=== PATIENT | female | born 1985 | race Caucasian/White ===

== ENCOUNTER 2019-01-13 18:40 | Emergency (ER) | payer MEDICAID ==
[2019-01-13] MEDS ORDERED: ASPIRIN 81 MG TABLET, CHEWABLE PO ONE (19:29)
--- NOTE | 2019-01-13 19:31 | ER Document Report ---
ED Medical Screen (RME) - General Chief Complaint: Chest Pain Stated Complaint: CHEST PAIN Time Seen by Provider: 01/13/19 19:25 Primary Care Provider: LAURA WILCOX MD [Primary Care Provider] - Follow up as needed Mode of Arrival: Wheelchair Information source: Patient Notes: Patient presents emergency department with complaints of midsternal chest pain that started today. Reports she has been having diarrhea and in the bed since Saturday. Denies fever vomiting. Denies history of cardiac disease. She reports she has a smoker's cough. Patient took 4 Pepto without relief of symptoms. Has not been on recent antibiotics. EKG shows sinus rhythm I have greeted and performed a rapid initial assessment of this patient. A comprehensive ED assessment and evaluation of the patient, analysis of test results and completion of the medical decision making process will be conducted by additional ED providers. Dictation of this chart was performed using voice recognition software; therefore, there may be some unintended grammatical errors. TRAVEL OUTSIDE OF THE [place] IN LAST 30 DAYS: No - Related Data Allergies/Adverse Reactions: Shellfish * [Shellfish] Allergy (Verified 04/14/15 20:05) pecans Allergy (Uncoded 04/14/15 20:05) walnuts Allergy (Uncoded 04/14/15 20:05) Past Medical History Neurological Medical History: Reports: Hx Migraine, Hx Seizures Psychiatric Medical History: Reports: Hx Attention Deficit Hyperactivity Disorder Past Surgical History: Reports: Hx Cholecystectomy, Hx Oral Surgery - Immunizations Hx Diphtheria, Pertussis, Tetanus Vaccination: Yes Physical Exam - Vital signs Vitals: Temp Pulse Resp BP Pulse Ox 98.0 F 91 16 133/87 H 97 01/13/19 19:17 01/13/19 19:17 01/13/19 19:17 01/13/19 19:17 01/13/19 19:17 Course - Vital Signs Vital signs: Temp Pulse Resp BP Pulse Ox 98.0 F 91 16 133/87 H 97 01/13/19 19:17 01/13/19 19:17 01/13/19 19:17 01/13/19 19:17 01/13/19 19:17 Doctor's Discharge - Discharge Referrals: LAURA WILCOX MD [Primary Care Provider] - Follow up as needed
--- NOTE | 2019-01-13 19:47 | RADIOLOGY REPORT (SQ) ---
EXAM DESCRIPTION: CHEST 2 VIEWS COMPLETED DATE/TIME: 01/13/2019 7:40 pm REASON FOR STUDY: chest pain COMPARISON: 05/20/2014. EXAM PARAMETERS: NUMBER OF VIEWS: two views TECHNIQUE: Digital Frontal and Lateral radiographic views of the chest acquired. RADIATION DOSE: NA LIMITATIONS: none FINDINGS: LUNGS AND PLEURA: No opacities, masses or pneumothorax. No pleural effusion. MEDIASTINUM AND HILAR STRUCTURES: No masses or contour abnormalities. HEART AND VASCULAR STRUCTURES: Heart normal size. No evidence for failure. BONES: No acute findings. HARDWARE: None in the chest. OTHER: No other significant finding. IMPRESSION: NO ACUTE RADIOGRAPHIC FINDING IN THE CHEST. TECHNICAL DOCUMENTATION: JOB ID: [id number] [employer]- All Rights Reserved Reading location - IP/workstation name: [email or web address]
[2019-01-13 20:49] LABS: ABSOLUTE EOSINOPHILS # (AUTO) 0.2 10^3/uL (0.0-0.6); ABSOLUTE LYMPHOCYTES (AUTO) 2.5 10^3/uL (0.5-4.7); ABSOLUTE MONOCYTES (AUTO) 0.6 10^3/uL (0.1-1.4); ABSOLUTE NEUT (AUTO) 6.2 10^3/uL (1.7-8.2); BASOPHILS % (AUTO) 0.3 % (0-2); EOSINOPHILS % (AUTO) 2.2 % (0-6); HEMATOCRIT 48.9 % (36.0-47.0); HEMOGLOBIN 16.9 g/dL (12.0-15.5); LYMPHOCYTES % (AUTO) 26.4 % (13-45); MEAN CORPUSCULAR HEMOGLOBIN 30.5 pg (27.0-33.4); MEAN CORPUSCULAR HGB CONC 34.6 g/dL (32.0-36.0); MEAN CORPUSCULAR VOLUME 88 fl (80-97); MONOCYTES % (AUTO) 6.7 % (3-13); PLATELET COUNT 261 10^3/uL (150-450); RED BLOOD COUNT 5.55 10^6/uL (3.72-5.28); RED CELL DISTRIBUTION WIDTH 13.5 % (11.5-14.0); SEGMENTED NEUTROPHILS % (AUTO) 64.4 % (42-78); TOTAL CELLS COUNTED % (AUTO) 100 %; WHITE BLOOD COUNT 9.5 10^3/uL (4.0-10.5)
[2019-01-13 21:08] LABS: ALBUMIN 4.7 g/dL (3.5-5.0); ALKALINE PHOSPHATASE 106 U/L (38-126); ANION GAP 14 (5-19); ASPARTATE AMINO TRANSFERASE 94 U/L (14-36); BILIRUBIN,DIRECT 0.2 mg/dL (0.0-0.4); BILIRUBIN,TOTAL 0.5 mg/dL (0.2-1.3); BLOOD UREA NITROGEN 9 mg/dL (7-20); CALCIUM 10.3 mg/dL (8.4-10.2); CARBON DIOXIDE 19 mmol/L (22-30); CHLORIDE 106 mmol/L (98-107); CREATINE KINASE 79 U/L (30-135); GLUCOSE 93 mg/dL (75-110); POTASSIUM 3.5 mmol/L (3.6-5.0); TOTAL PROTEIN 7.8 g/dL (6.3-8.2)
[2019-01-13 21:19] LABS: CREATINE KINASE MB 0.63 ng/mL (<4.55)
[2019-01-13 21:20] LABS: TROPONIN I < 0.012 ng/mL
[2019-01-13] MEDS ORDERED: ONDANSETRON HCL INJ/PF 4 MG/2 ML SDV IV ONE (21:24)
[2019-01-13] MEDS ORDERED: POTASSIUM CHLORIDE 10 MEQ CAPSULE.ER PO ONE (21:24)
[2019-01-13] MEDS ORDERED: RINGERS SOLUTION,LACTATED 1,000 ML IV ONE (21:24)
[2019-01-13] MEDS ORDERED: FAMOTIDINE 20 MG TABLET PO ONE (21:24)
--- NOTE | 2019-01-13 21:28 | ER Document Report ---
ED General - General Chief Complaint: Chest Pain > 30 Stated Complaint: CHEST PAIN Time Seen by Provider: 01/13/19 19:25 Primary Care Provider: ADAN CASTAÑEDA MD [ACTIVE STAFF] - Follow up as needed FLO ETIENNE MD [ACTIVE STAFF] - Follow up as needed Mode of Arrival: Wheelchair Notes: Patient is a 33-year-old female that comes to the emergency department for chief complaint of persistent diarrhea for the past 3 days or so. She states that she is having 5-10 episodes a day, nonbloody, denies fever, denies particular abdominal pain. She denies any obvious sick contacts, recent travel, suspicious foods, recent antibiotics, or history of C. difficile. Patient states that when she got up this morning she also had a discomfort in her chest, she points to the middle of her sternum, she states this did resolve but she "wanted to get checked out in case". She denies history of ME. Past medical history includes cholecystectomy, migraines, and that she states she is currently being worked up for ongoing sharp pains in her legs which are causing her a gait abnormality (this is been present for months). She denies recreational drugs. TRAVEL OUTSIDE OF THE [place] IN LAST 30 DAYS: No - Related Data Allergies/Adverse Reactions: Shellfish * [Shellfish] Allergy (Verified 04/14/15 20:05) pecans Allergy (Uncoded 04/14/15 20:05) walnuts Allergy (Uncoded 04/14/15 20:05) Past Medical History - General Information source: Patient - Social History Smoking Status: Current Every Day Smoker Chew tobacco use (# tins/day): No Frequency of alcohol use: None Lives with: Family Family History: Reviewed & Not Pertinent, CAD, CVA, Hypertension, Malignancy Patient has suicidal ideation: No Patient has homicidal ideation: No Neurological Medical History: Reports: Hx Migraine, Hx Seizures Psychiatric Medical History: Reports: Hx Attention Deficit Hyperactivity Disorder Past Surgical History: Reports: Hx Cholecystectomy, Hx Oral Surgery - Immunizations Hx Diphtheria, Pertussis, Tetanus Vaccination: Yes Review of Systems - Review of Systems Constitutional: See HPI EENT: No symptoms reported Cardiovascular: No symptoms reported Respiratory: No symptoms reported Gastrointestinal: See HPI Genitourinary: No symptoms reported Female Genitourinary: No symptoms reported Musculoskeletal: No symptoms reported Skin: No symptoms reported Hematologic/Lymphatic: No symptoms reported Neurological/Psychological: No symptoms reported Physical Exam - Vital signs Vitals: Temp Pulse Resp BP Pulse Ox 98.0 F 91 16 133/87 H 97 01/13/19 19:17 01/13/19 19:17 01/13/19 19:17 01/13/19 19:17 01/13/19 19:17 - Notes Notes: GENERAL: Alert, interacts well. No acute distress. HEAD: Normocephalic, atraumatic. EYES: Pupils equal, round, and reactive to light. Extraocular movements intact. ENT: Oral mucosa dry, tongue midline. Oropharynx unremarkable. Airway patent. NECK: Full range of motion. Supple. Trachea midline. LUNGS: Clear to auscultation bilaterally, no wheezes, rales, or rhonchi. No respiratory distress. HEART: Regular rate and rhythm. No murmur ABDOMEN: Soft, non-tender. Non-distended. Bowel sounds present in all 4 quadrants. GENITOURINARY: Deferred EXTREMITIES: Moves all 4 extremities spontaneously. No edema, normal radial and dorsalis pedis pulses bilaterally. No cyanosis. BACK: no cervical, thoracic, lumbar midline tenderness. No saddle anesthesia, normal distal neurovascular exam. Moves all extremities in full range of motion. NEUROLOGICAL: Alert and oriented x3. Normal speech. Straight gait but somewhat awkward in appearance with what appears to be pain with random steps. Cranial nerves II through XII grossly intact. PSYCH: Very talkative, frequently apologetic, frequently sarcastic SKIN: Warm, dry, normal turgor. No rashes or lesions noted. Course - Re-evaluation Re-evalutation: Patient reporting chronic problems with aching and pains in her extremities affecting her gait, only new complaint is dehydration and diarrhea. CBC unremarkable, chemistry does show low bicarbonate and borderline potassium. Given a bolus of lactated Ringer's, and dose of potassium. Given nausea medication. Patient is tolerating p.o. On reevaluation patient states she feels much better and she is asking to be discharged. Stool does not show white blood cells, culture pending. However patient easily provided diarrhea and she is having about 10 episodes a day. As result I did discuss with patient options and decision was made to cover her with Bactrim for possible traveler's diarrhea. Patient is requesting primary care referral and she was provided with this. Discussed follow-up and return precautions. Federico macias states understanding and agreement. Stable at time of discharge. - Vital Signs Vital signs: Temp Pulse Resp BP Pulse Ox 98.0 F 72 18 130/83 H 98 01/13/19 19:17 01/13/19 23:51 01/13/19 23:51 01/13/19 23:51 01/13/19 23:51 - Laboratory Result Diagrams: 01/13/19 20:00 01/13/19 20:00 Laboratory results interpreted by me: 01/13/19 01/13/19 20:00 20:00 RBC 5.55 H Hgb 16.9 H Hct 48.9 H Potassium 3.5 L Carbon Dioxide 19 L Calcium 10.3 H AST 94 H Discharge - Discharge Clinical Impression: Dehydration, Hypokalemia, Chest discomfort Diarrhea Qualifiers: Diarrhea type: unspecified type Qualified Code(s): R19.7 - Diarrhea, unspecified Condition: Stable Disposition: HOME, SELF-CARE Additional Instructions: Your work-up shows dehydration, low potassium, but otherwise does not show any concerning findings including heart work-up tests. Increase potassium in your diet for the next several days, drink plenty of fluids, take antibiotic as prescribed for diarrhea as discussed, we do have a stool culture growing in our lab. Consider [id number] probiotics while recovering from the diarrhea. Because of your general symptoms please follow with primary care for possible autoimmune work-up as discussed, you may also need gastroenterology testing if symptoms continue. Come back if you are worse including vomiting, severe abdominal pain, or any other concerning or worsening symptoms. Prescriptions: Sulfamethoxazole/Trimethoprim [Bactrim Ds Tablet] 1 each PO BID #14 tablet Forms: Smoking Cessation Education Referrals: ADAN CASTAÑEDA MD [ACTIVE STAFF] - Follow up as needed FLO ETIENNE MD [ACTIVE STAFF] - Follow up as needed
[2019-01-13] MEDS ORDERED: SULFAMETHOXAZOLE/TRIMETHOPRIM 800-160 MG TABLET PO ONE (23:39)
[2019-01-13 23:53] VITALS: BP 130/83
--- NOTE | 2019-01-14 11:01 | EKG REPORT ---
SEVERITY:- BORDERLINE ECG - SINUS RHYTHM BORDERLINE T ABNORMALITIES, ANTERIOR LEADS : Confirmed by: Susannah Martino 14-Jan-2019 11:00:37
== END 2019-01-13 23:51 | disposition home or self-care (01) ==
LOC: ER 18:40
DX: R19.7 Diarrhea, unspecified (principal); E87.6 Hypokalemia; E86.0 Dehydration; R07.9 Chest pain, unspecified; M79.604 Pain in right leg; M79.605 Pain in left leg; F17.200 Nicotine dependence, unspecified, uncomplicated; Z90.49 Acquired absence of other specified parts of digestive tract; Z91.013 Allergy to seafood; Z91.018 Allergy to other foods
CPT/HCPCS: 93005; 99285; 96361; 96374; 36415; 87045; 89055; 87205; 82553; 82550; 83690; 84703; 85025; 82272; 80053; 84484; 71046; 93010; J3490 ×2; J2405; J7120

== ENCOUNTER 2019-01-15 22:20 | Emergency (ER) | payer SELFPAY ==
[2019-01-15] MEDS ORDERED: ALBUTEROL SULFATE 0.083% NEB 2.5 MG/3 ML AMPUL NEB ONE (22:34)
--- NOTE | 2019-01-15 22:35 | ER Document Report ---
ED Medical Screen (RME) - General Chief Complaint: Anxiety Stated Complaint: PANIC ATTACK Time Seen by Provider: 01/15/19 22:27 Mode of Arrival: Medic Information source: Patient Notes: 33-year-old female presents emergency department with reports she is having a panic attack. Patient is constantly coughing. Reports she took her hydralazine at 9:00 without relief of symptoms. Respiratory rate is even clear good airway. Patient is able to calm down when we talk calmly to her. Reports she did drink EtOH tonight but vomited all up. I have greeted and performed a rapid initial assessment of this patient. A comprehensive ED assessment and evaluation of the patient, analysis of test results and completion of the medical decision making process will be conducted by additional ED providers. Dictation of this chart was performed using voice recognition software; therefore, there may be some unintended grammatical errors. TRAVEL OUTSIDE OF THE [place] IN LAST 30 DAYS: No - Related Data Allergies/Adverse Reactions: Shellfish * [Shellfish] Allergy (Verified 04/14/15 20:05) pecans Allergy (Uncoded 04/14/15 20:05) walnuts Allergy (Uncoded 04/14/15 20:05) Past Medical History Neurological Medical History: Reports: Hx Migraine, Hx Seizures Psychiatric Medical History: Reports: Hx Attention Deficit Hyperactivity Disorder Past Surgical History: Reports: Hx Cholecystectomy, Hx Oral Surgery - Immunizations Hx Diphtheria, Pertussis, Tetanus Vaccination: Yes Physical Exam - Vital signs Vitals: Temp Pulse Resp BP Pulse Ox 100.9 F H 122 H 20 113/72 94 01/15/19 22:29 01/15/19 22:29 01/15/19 22:29 01/15/19 22:29 01/15/19 22:29 Course - Vital Signs Vital signs: Temp Pulse Resp BP Pulse Ox 100.9 F H 122 H 20 113/72 94 01/15/19 22:29 01/15/19 22:29 01/15/19 22:29 01/15/19 22:29 01/15/19 22:29
[2019-01-16] MEDS ORDERED: LORAZEPAM INJ 2 MG/1 ML VIAL IV ONE (00:05)
[2019-01-16] MEDS ORDERED: NORMAL SALINE 1000 ML 1,000 ML IV ONE (00:05)
[2019-01-16] MEDS ORDERED: ACETAMINOPHEN 325 MG TABLET PO ONE (00:05)
--- NOTE | 2019-01-16 00:07 | ER Document Report ---
ED General - General Chief Complaint: Anxiety Stated Complaint: PANIC ATTACK Time Seen by Provider: 01/15/19 22:27 Primary Care Provider: [facility] [Provider Group] - Follow up in 3-5 days FLO ETIENNE MD [ACTIVE STAFF] - Follow up in 3-5 days Mode of Arrival: Medic Notes: Patient is a 33-year-old female that comes emergency department for chief complaint of a "panic attack" and persistent cough. She states that she was told that her significant other might be taking the kids away from her, she states that she "freaked out", she states that she tried to calm down by taking a shot of alcohol but she vomited, she states she took hydralazine as well but this did not help. In addition to this I saw the patient about 2 days ago for persistent diarrhea and she was placed on Bactrim, she states that yesterday she had some diarrhea and today very little, she states she is actually improved in this regard. Past medical history includes cholecystectomy, migraines, ongoing work-up for gait abnormality, she admits to tobacco and marijuana but denies any recreational drugs otherwise, denies history of recreational drugs otherwise. TRAVEL OUTSIDE OF THE [place] IN LAST 30 DAYS: No - Related Data Allergies/Adverse Reactions: Shellfish * [Shellfish] Allergy (Verified 04/14/15 20:05) gluten Adverse Reaction (Verified 01/16/19 04:13) pecans Allergy (Uncoded 04/14/15 20:05) walnuts Allergy (Uncoded 04/14/15 20:05) Past Medical History - General Information source: Patient - Social History Smoking Status: Current Every Day Smoker Smoking Education Provided: Yes - <3 min Frequency of alcohol use: Social Drug Abuse: Marijuana Lives with: Friend Family History: Reviewed & Not Pertinent, CAD, CVA, Hypertension, Malignancy Patient has suicidal ideation: No Patient has homicidal ideation: No Neurological Medical History: Reports: Hx Migraine, Hx Seizures Psychiatric Medical History: Reports: Hx Attention Deficit Hyperactivity Disorder Past Surgical History: Reports: Hx Cholecystectomy, Hx Oral Surgery - Immunizations Hx Diphtheria, Pertussis, Tetanus Vaccination: Yes Review of Systems - Review of Systems Constitutional: See HPI EENT: No symptoms reported Cardiovascular: No symptoms reported Respiratory: See HPI Gastrointestinal: No symptoms reported Genitourinary: No symptoms reported Female Genitourinary: No symptoms reported Musculoskeletal: No symptoms reported Skin: No symptoms reported Hematologic/Lymphatic: No symptoms reported Neurological/Psychological: See HPI Physical Exam - Vital signs Vitals: Temp Pulse Resp BP Pulse Ox 100.9 F H 122 H 20 113/72 94 01/15/19 22:29 01/15/19 22:29 01/15/19 22:29 01/15/19 22:01/15/19 22:29 - Notes Notes: GENERAL: Alert, mildly hyperventilating HEAD: Normocephalic, atraumatic. EYES: Pupils equal, round, and reactive to light. Extraocular movements intact. ENT: Oral mucosa moist, tongue midline. Oropharynx unremarkable. Airway patent. Nares patent, no nasal septal hematoma, TM's intact. NECK: Full range of motion. Supple. Trachea midline. LUNGS: Clear to auscultation bilaterally, no wheezes, rales, or rhonchi. Occasional nonproductive coughing episodes. Patient hyperventilating. HEART: Borderline tachycardic, normal rhythm, no murmur ABDOMEN: Soft, non-tender. Non-distended. Bowel sounds present in all 4 quadrants. GENITOURINARY: Deferred EXTREMITIES: Moves all 4 extremities spontaneously. No edema, normal radial and dorsalis pedis pulses bilaterally. No cyanosis. BACK: no cervical, thoracic, lumbar midline tenderness. No saddle anesthesia, normal distal neurovascular exam. Moves all extremities in full range of motion. NEUROLOGICAL: Alert and oriented x3. Normal speech. Cranial nerves II through XII grossly intact. PSYCH: Initially anxious but still cooperative and conversational SKIN: Warm, dry, normal turgor. No rashes or lesions noted. Course - Re-evaluation Re-evalutation: On my initial evaluation patient is hyperventilating, tachycardic, has a low- grade fever, and appears anxious. However she does not appear toxic. She is not hypotensive. Her lungs are clear, her physical examination is otherwise unremarkable. Abdomen is nontender. Patient not complaining of diarrhea anymore. Chest x-ray appears to show pneumonia, this appears to be in the left mid to lower lung perez, radiology read is vascular congestion versus pneumonitis, however patient has no rales, lower extremity edema, history of heart failure, and she had a fever. She also has leukocytosis of 21.4 with elevation of n eutrophils but no bandemia. Overall presentation is most suggestive of pneumonia. Chemistry unremarkable, EKG without ischemic findings, on reevaluation after Ativan patient calm down, after Tylenol and IV fluids tachycardia resolved, on reevaluation patient is very well-appearing. I did discuss patient with Dr. Gayle. I discussed results and options with patient in detail. Patient states she does feel much better now, patient will be treated with doxycycline at home for suspected pneumonia, patient will follow-up with [facility] and only take ativan temporarily and as needed for panic attacks only. Patient denies SI or HI. She is calm and conversational. Discussed follow-up, expectations, and return precautions in detail. Patient states understanding and agreement. Stable at time of discharge. - Vital Signs Vital signs: Temp Pulse Resp BP Pulse Ox 98.6 F 122 H 21 H 108/66 98 01/16/19 04:13 01/15/19 22:29 01/16/19 04:16 01/16/19 04:16 01/16/19 04:16 - Laboratory Result Diagrams: 01/16/19 00:50 01/16/19 00:50 Laboratory results interpreted by me: 01/16/19 01/16/19 01/16/19 00:50 00:50 01:00 WBC 21.4 H D Seg Neuts % (Manual) 83 H Lymphocytes % (Manual) 9 L Abs Neuts (Manual) 17.8 H Abs Monocytes (Manual) 1.5 H Carbon Dioxide 21 L AST 162 H Alkaline Phosphatase 147 H Urine Protein 100 H Urine Ketones TRACE H Urine Urobilinogen 2.0 H Ur Leukocyte Esterase TRACE H Urine Ascorbic Acid 40 H Discharge - Discharge Clinical Impression: Panic attack Fever Qualifiers: Fever type: unspecified Qualified Code(s): R50.9 - Fever, unspecified Pneumonia Qualifiers: Pneumonia type: due to unspecified organism Laterality: unspecified laterality Lung location: unspecified part of lung Qualified Code(s): J18.9 - Pneumonia, unspecified organism Condition: Stable Disposition: HOME, SELF-CARE Additional Instructions: In addition to the anxiety and panic attack tonight, your evaluation showed a fever and that you have pneumonia. Take the doxycycline as prescribed, stop the Bactrim. Take Tylenol or ibuprofen as needed for fever. Drink plenty fluids and rest. This should gradually resolve. Follow-up with primary care referral listed. Follow-up with the mental health referral ([facility]) for additional management of anxiety/panic attacks. Only use the lorazepam if needed in the event of panic attack, do not drive or combine with sedating medication or alcohol. Return to the emergency department for any concerning symptoms, any worsening, difficulty breathing, or if something is not right. Prescriptions: Lorazepam [Ativan 1 mg Tablet] 1 mg PO Q4 PRN #10 tab PRN Reason: Doxycycline Hyclate 100 mg PO BID #14 capsule Referrals: FLO ETIENNE MD [ACTIVE STAFF] - Follow up in 3-5 days [facility] [Provider Group] - Follow up in 3-5 days
--- NOTE | 2019-01-16 01:19 | RADIOLOGY REPORT (SQ) ---
EXAM DESCRIPTION: XR CHEST 1 VIEW COMPLETED DATE/TME: 01/16/2019 00:04 CLINICAL HISTORY: 33 years Female, fever, shortness of breath COMPARISON: 3 days prior NUMBER OF VIEWS/TECHNIQUE: 1/AP FINDINGS: Moderate central edema. Adequate lung volume, normal cardiac silhouette, and intact bony thorax. IMPRESSION: Moderate central pulmonary edema. Differential diagnosis includes atypical pneumonitis.
[2019-01-16 01:24] LABS: HEMATOCRIT 43.6 % (36.0-47.0); HEMOGLOBIN 14.9 g/dL (12.0-15.5); MEAN CORPUSCULAR HEMOGLOBIN 30.3 pg (27.0-33.4); MEAN CORPUSCULAR HGB CONC 34.2 g/dL (32.0-36.0); MEAN CORPUSCULAR VOLUME 89 fl (80-97); PLATELET COUNT 320 10^3/uL (150-450); RED BLOOD COUNT 4.93 10^6/uL (3.72-5.28); RED CELL DISTRIBUTION WIDTH 13.2 % (11.5-14.0)
[2019-01-16 01:28] LABS: APPEARANCE,URINE SLIGHTLY-CLOUDY; BILIRUBIN,URINE NEGATIVE (NEGATIVE); GLUCOSE, URINE NEGATIVE (NEGATIVE); KETONES,URINE TRACE mg/dL (NEGATIVE); LEUKOCYTE ESTERASE,URINE TRACE (NEGATIVE); NITRITE,URINE NEGATIVE (NEGATIVE); PROTEIN,URINE 100 mg/dL (NEGATIVE); URINE SPECIFIC GRAVITY 1.027
[2019-01-16 01:29] LABS: COLOR,URINE YELLOW
[2019-01-16 01:35] LABS: ALBUMIN 4.7 g/dL (3.5-5.0); ALKALINE PHOSPHATASE 147 U/L (38-126); ANION GAP 13 (5-19); ASPARTATE AMINO TRANSFERASE 162 U/L (14-36); BILIRUBIN,DIRECT 0.4 mg/dL (0.0-0.4); BLOOD UREA NITROGEN 7 mg/dL (7-20); CARBON DIOXIDE 21 mmol/L (22-30); CHLORIDE 106 mmol/L (98-107); GLUCOSE 106 mg/dL (75-110); POTASSIUM 3.8 mmol/L (3.6-5.0); TOTAL PROTEIN 7.9 g/dL (6.3-8.2)
[2019-01-16 01:40] LABS: ALCOHOL < 10 mg/dL (NONE DETECTED)
[2019-01-16 01:47] LABS: URINE AMPHETAMINES SCREEN NEGATIVE; URINE BARBITURATES SCREEN NEGATIVE; URINE BENZODIAZEPINES SCREEN NEGATIVE; URINE COCAINE SCREEN NEGATIVE; URINE MARIJUANA (THC) SCREEN UNCONFIRMED POSITIVE; URINE METHADONE SCREEN NEGATIVE; URINE PHENCYCLIDINE SCREEN NEGATIVE
[2019-01-16 02:00] LABS: WHITE BLOOD COUNT 21.4 10^3/uL (4.0-10.5)
[2019-01-16 02:07] LABS: ABSOLUTE LYMPHOCYTES# (MANUAL) 1.9 10^3/uL (0.5-4.7); ABSOLUTE MONOCYTES # (MANUAL) 1.5 10^3/uL (0.1-1.4); BASOPHILS % (MANUAL) 1 % (0-2); EOSINOPHILS % (MANUAL) 0 % (0-6); LYMPHOCYTES % (MANUAL) 9 % (13-45); MONOCYTES % (MANUAL) 7 % (3-13); SEGMENTED NEUTROPHILS % (MAN) 83 % (42-78); TOTAL CELLS COUNTED 100
[2019-01-16 02:08] LABS: PLATELET COMMENT ADEQUATE; TEAR DROP CELLS SLIGHT
[2019-01-16] MEDS ORDERED: DOXYCYCLINE HYCLATE INJ 100 MG VIAL IV ONE (02:47)
[2019-01-16] MEDS ORDERED: NICOTINE 14 MG/24 HR PATCH.TD24 TD ONE (03:29)
[2019-01-16] MEDS ORDERED: KETOROLAC TROMETHAMINE INJ/PF 30 MG/1 ML SDV IV ONE (03:41)
[2019-01-16 04:51] VITALS: BP 108/66
== END 2019-01-16 05:28 | disposition home or self-care (01) ==
LOC: ER 22:20
DX: F41.0 Panic disorder [episodic paroxysmal anxiety] (principal); J18.9 Pneumonia, unspecified organism; R50.9 Fever, unspecified; R05 Cough; R00.0 Tachycardia, unspecified; R06.4 Hyperventilation; D72.828 Other elevated white blood cell count; F17.200 Nicotine dependence, unspecified, uncomplicated; F12.10 Cannabis abuse, uncomplicated; Z91.013 Allergy to seafood; Z91.018 Allergy to other foods
CPT/HCPCS: 94640; 99283; 96361; 96375; 96365; 36415; 87040; 80307 ×2; 85025; 81025; 80053; 81001; 71045; J3490; J1885; J2060; J7030